=== PATIENT | female | born 1990 | race Caucasian/White ===

== ENCOUNTER → 2020-09-08 08:36 | Outpatient (CLI) | payer OTHER, SELFPAY ==
[2020-09-08 09:07] LABS: Add Manual Diff / Slide Review NO; Basophils Absolute Auto 0 /uL (0-100); Basophils Percent Auto 0.3 % (0-2); Eosinophils Absolute Auto 0 /uL (0-450); Eosinophils Percent Auto 0.2 % (2-4); Hematocrit 38.2 % (36-46); Hemoglobin 13.1 g/dL (12.0-16.0); Lymphocytes Absolute Auto 1800 /uL (1100-4500); Lymphocytes Percent Auto 20.4 % (25-40); Mean Corpuscular HGB Conc 34.1 % (30-36); Mean Corpuscular Hemoglobin 30.4 PG (26-34); Mean Corpuscular Volume 89.2 fL (80-100); Monocytes Absolute Auto 500 /uL (0-900); Neutrophils Absolute Auto 6700 /uL (1500-7000); Neutrophils Percent Auto 74.1 % (50-75); Platelet Count 295 X10^3/uL (150-400); Red Blood Cell Count 4.29 X10^6/uL (4.0-5.2); Red Cell Distribution Width 13.4 % (11.6-14.8)
[2020-09-08 10:26] LABS: Alanine Aminotransferase 16 IU/L (<35); Albumin 4.2 g/dL (3.5-5.0); Albumin Globulin Ratio 1.3 (1.0-2.8); Alkaline Phosphatase 60 U/L (38-126); Aspartate Aminotransferase 22 IU/L (14-36); BUN Creatinine Ratio 14.8 (6-22); Bilirubin Total 0.2 mg/dL (0.2-1.3); Blood Urea Nitrogen 9 mg/dL (7-17); Calcium 9.6 mg/dL (8.4-10.2); Carbon Dioxide 22 mmol/L (22-32); Chloride 104 mmol/L (98-107); Cholesterol 146 mg/dL (140-199); Estimated Glomerular Filt Rate > 60.0 mL/min (>60); Globulin 3.2 g/dL (1.7-4.1); Glucose 93 mg/dL (70-100); HDL Cholesterol 56 mg/dL (40-60); HEMOLYSIS < 15 (0-50); LDL Cholesterol Calculated 75 mg/dL (<100); Potassium 3.9 mmol/L (3.4-5.1); Sodium 134 mmol/L (137-145); Total Protein 7.4 g/dL (6.3-8.2); Triglycerides 77 mg/dL (35-150)
[2020-09-08 10:38] LABS: Total Iron Binding Capacity 396 ug/dL (265-497)
[2020-09-08 10:49] LABS: Free T4, Direct Thyroxine 1.06 ng/dL (0.78-2.19)
[2020-09-08 11:03] LABS: Thyroid Stimulating Hormone 1.31 uIU/mL (0.47-4.68)
[2020-09-08 11:07] LABS: Ferritin 11 ng/mL (6-137)
== END ==
PROVIDERS: PCP Registered Nurse; Referring Provider Registered Nurse; Visit Provider Registered Nurse
DX: D50.9 Iron deficiency anemia, unspecified (principal); Z82.49 Family history of ischemic heart disease and other diseases of the circulatory system; F41.8 Other specified anxiety disorders
CPT/HCPCS: 36415; 80053; 80061; 82728; 83550; 84439; 84443; 85025

== ENCOUNTER → 2022-01-05 14:59 | Outpatient (CLI) | payer OTHER, SELFPAY ==
[2022-01-05 15:44] LABS: Add Manual Diff / Slide Review NO; Basophils Absolute Auto 0 /uL (0-100); Basophils Percent Auto 0.5 % (0-2); Eosinophils Absolute Auto 0 /uL (0-450); Eosinophils Percent Auto 0.7 % (2-4); Hematocrit 39.7 % (36-46); Hemoglobin 13.4 g/dL (12.0-16.0); Lymphocytes Absolute Auto 2100 /uL (1100-4500); Mean Corpuscular HGB Conc 33.6 % (30-36); Mean Corpuscular Hemoglobin 29.9 PG (26-34); Mean Corpuscular Volume 88.8 fL (80-100); Monocytes Absolute Auto 300 /uL (0-900); Monocytes Percent Auto 4.8 % (3-14); Neutrophils Absolute Auto 4600 /uL (1500-7000); Platelet Count 311 X10^3/uL (150-400); Red Blood Cell Count 4.47 X10^6/uL (4.0-5.2); Red Cell Distribution Width 13.6 % (11.6-14.8); White Blood Cell Count 7.1 X10^3/uL (4.5-11.0)
[2022-01-05 16:06] LABS: Alanine Aminotransferase 17 IU/L (<35); Albumin 4.8 g/dL (3.5-5.0); Albumin Globulin Ratio 1.2 (1.0-2.8); Alkaline Phosphatase 112 U/L (38-126); Aspartate Aminotransferase 29 IU/L (14-36); BUN Creatinine Ratio 20.7 (6-22); Bilirubin Total 0.3 mg/dL (0.2-1.3); Blood Urea Nitrogen 17 mg/dL (7-17); C-Reactive Protein Quant 1.2 mg/dL (<1.0); Calcium 9.3 mg/dL (8.4-10.2); Carbon Dioxide 25 mmol/L (22-32); Chloride 104 mmol/L (98-107); Estimated Glomerular Filt Rate > 60 mL/min (>60); Globulin 3.9 g/dL (1.7-4.1); Glucose 91 mg/dL (70-100); HEMOLYSIS < 15 (0-50); Potassium 3.9 mmol/L (3.4-5.1); Sodium 140 mmol/L (137-145); Total Protein 8.7 g/dL (6.3-8.2); Uric Acid 4.6 mg/dL (2.5-6.2)
[2022-01-05 16:10] LABS: Rheumatoid Factor < 8.6 IU/mL (<12.0)
[2022-01-05 16:26] LABS: Erythrocyte Sedimentation Rate 15 MM/HR (0-20)
[2022-01-05 17:18] LABS: Vitamin D 25 Hydroxy (D3) 44.7 ng/mL (30.0-100.0)
[2022-01-06 16:23] LABS: Deamidated Gliadin Ab IgA 4 units (0-19); Deamidated Gliadin Ab IgG 5 units (0-19); Immunoglobulin A,Qn 227 mg/dL (87-352); t-Transglutaminase IgA <2 U/mL (0-3)
[2022-01-07 13:47] LABS: ANA Screen, IFA Negative (.)
[2022-01-08 22:04] LABS: CCP Antibodies IgG/IgA 6 units (0-19)
== END ==
PROVIDERS: PCP Registered Nurse Diabetes Educator; Referring Provider Registered Nurse Diabetes Educator; Visit Provider Registered Nurse Diabetes Educator
DX: K58.9 Irritable bowel syndrome, unspecified (principal); M25.50 Pain in unspecified joint; R53.83 Other fatigue
CPT/HCPCS: 36415; 80053; 82306; 82784; 83516; 84443; 84550; 85025; 85651; 86038; 86140; 86200; 86430

== ENCOUNTER 2023-04-27 10:53 | Day surgery (SDC) | payer OTHER, SELFPAY ==
[2023-04-21 12:32] VITALS: BMI 28.8
[2023-04-27] VITALS (7 sets, daily range): BP systolic 122–145; BP diastolic 56–84; PULSE 83–113; RESP 12–16; TEMP 36.6–36.8; O2SAT 95–99; BMI 28.8
[2023-04-27] MEDS: LACTATED RINGERS 1,000 ML 42 ML IV (11:41)
--- NOTE | 2023-04-27 13:00 | PM.HP.1 ---
History of Present Illness History of Present Illness Date Patient Seen: 04/27/23 Time Patient Seen: 13:00 Chief complaint: [facility] – [place] Narrative: Patient here for MPFL reconstruction, seen in the preoperative area. She has had some increased pain along lateral side of her knee since I last saw her on 03/28. She has not had any further dislocations but has been very careful not to pivot. Denies any recent nausea, vomiting, diarrhea, fevers, chills or any other constitutional symptoms. No other complaints at this time. [facility] Medical History (Updated 03/03/23 @ 09:17 by Shun Scales DO) Patellar dislocation Irritable bowel syndrome with predominant constipation Migraine with aura, not intractable, without status migrainosus Fibromyalgia Hypermobile Ford-Danlos syndrome depression Surgical History (Updated 04/21/23 @ 12:36 by Megan Pan RN) Hx of nasal septoplasty (2019) Social History household members: spouse and children Smoking Status: Never smoker alcohol intake: current substance use type: does not use Meds Home Medications and Allergies Home Medications Medication Instructions Recorded Confirmed Type duloxetine 60 mg capsule,delayed 60 mg PO DAILY #90 caps 01/24/23 04/27/23 Rx release linaclotide 145 mcg capsule 145 mcg PO DAILY #30 caps 04/15/23 04/27/23 Rx (Linzess) Allergies Allergy/AdvReac Type Severity Reaction Status Date / Time No Known Drug Allergies Allergy Verified 04/27/23 12:09 Review of Systems Review of Systems ROS: Yes All systems reviewed with the patient and are negative except as otherwise documented Exam Vital Signs (past 8 hours): - 04/27/23 11:30 Temperature 97.9 F Pulse Rate 86 Respiratory Rate 16 Blood Pressure 127/78 Pulse Oximetry 99 Oxygen Delivery Method Room Air Oxygen Delivery Method Room Air Narrative Exam Narrative: HEENT: Head atraumatic eyes anicteric moist mucous membranes Cardiovascular: Palpable peripheral pulses extremities are warm and well perfused Respiratory: Breathing comfortably on room air Psychiatric: Appropriate mood and affect Neuro: No acute deficits Musculoskeletal: Exam of the right lower extremity demonstrates 100% translation of the patella laterally. Full range of motion. Stable knee to Klaus's. Sensation intact to light touch throughout. 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 Risks and benefits of surgery were discussed again including the risk of infection, damage to internal structures, bleeding, nerve injury, instability, need for revision surgery, blood clots, anesthesia and . No guarantees were made regarding outcomes. Patient expressed understanding and accepted these risks and wished to go forward with surgery and consent was signed. Her right lower extremity was marked with my initials.
[2023-04-27] MEDS: CEFAZOLIN 2 GM/100 ML PREMIX 100 ML IV (14:21)
[2023-04-27] MEDS: TRANEXAMIC ACID 1,000 MG VIAL 1000 MG INJ (14:22)
--- NOTE | 2023-04-27 14:25 | SUR.OPER ---
Supine on padded OR bed, head on pillow, arms secured on padded arm boards at <90 degrees abduction, legs uncrossed, safety belt at thigh, tape over blanket over non op leg. operative leg draped free. right thigh against lateral post
[2023-04-27] MEDS: BUPIVACAINE 0.25% (PF) 30 ML, EPINEPHrine 0.15 MG INJ (14:52)
--- NOTE | 2023-04-27 15:26 | PM.OP.1 ---
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 The risks and benefits and alternatives of surgery were discussed. Risks including bleeding, infection, damage to neurovascular structures, blood clots including pulmonary embolism, worsening of pain, stiffness, swelling, failure of surgery and need for future surgery. No guarantees were made regarding outcomes Surgeon: Bobby Pineda Infantry Officer: Alisson Leach Click Yes if Unassisted: No Anesthesia Type: General Operative Notes Findings: Findings: Examination under anesthesia: Full range of motion from 0-160 degrees, stable to varus and valgus as well as Klaus's and posterior drawer. 100% translation of the patella. No J-sign. Patellofemoral joint: Healthy intact cartilage, patella is lateralized at rest and continues to slide lateral at 30? and 60? of flexion Medial and lateral gutters: No loose bodies noted Medial compartment: Intact medial meniscus, medial tibial plateau, medial femoral condyle Intercondylar notch: Cruciate ligaments intact Lateral compartment: Lateral meniscus, lateral femoral condyle and lateral tibial plateau are intact and appear healthy Closure Type: primary Specimen(s): none sent Prosthetic devices, grafts, tissues, transplants, or devices: Implants: Semi tendinosis allograft, 4.75 knotless SwiveLock x1, 1.8 mm knotless FiberTak Estimated Blood Loss (mL): 15 Tourniquet time (min): 60 Procedure in detail: Description: Patient was seen in the preoperative holding unit. We again went over the risks and benefits of surgery and I marked my initials on the right lower extremity. The patient was then brought to the operating room, placed supine on the operating table and underwent LMA anesthesia. Exam under anesthesia revealed absent check rein sign. Translation was around 100%. A well-padded tourniquet was placed on the proximal thigh. The extremity was then prepped and draped in the standard sterile fashion. 2 g of Ancef were given intravenously prior to the start of the procedure. The semi tendinosis allograft was identified and taken to the back table and whipstitched on either end. Simultaneously, arthroscopy was then performed. An anterior medial and an anterior lateral portal were established. Upon entering the patellofemoral joint there was no significant cartilage pathology. The patella was not centered over the trochlear groove and was noted to be lateralized. Exam of the medial and lateral compartments demonstrated intact meniscus and intact cartilage. Aggressive synovectomy was performed of multiple compartments using a 4 mm shaver including a debridement of the medial plica and anterior fat pad and multiple compartments including the medial and lateral compartment to allow full uninhibited range of motion throughout rehabilitation. ACL and PCL were intact. The arthroscopy equipment was removed and we began with a 3 cm incision centered over the proximal patella and distal quadriceps tendon. Two parallel incisions were made within the quadriceps tendon and a passing suture was placed between the incisions. Using the same skin incision, some of the periosteum on the medial border of the proximal 1/3 of the patella was elevated. We then made a separate incision centered over the medial epicondyle. Dissection was taken down to between the medial epicondyle and adductor tubercle. The saddle area between them was palpated. A small incision was made in the VMO fascia near the insertion and a tonsil clamp was passed between layers 2 and layer 3 to the saddle area on the femur. A silver punch for the Arthrex SwiveLock was then malleted part way down and the passing suture was looped around and used to test asymmetry. When we were satisfied with our cystometry we completed the punch to the 2nd line. The SwiveLock was then placed at the junction of the 1 3-2/3rd section of the graft and the graft was placed in a onlay fashion onto femur. The long end of the limb was then passed to the quadriceps incisions and the short and was passed of the patella. Arthroscopy equipment was reinserted to ensure there was no intra-articular passing of the graft. Then, careful not to over tension the graft, we sutured the graft into the quadriceps tendon. This set the tension, the 2nd limb, the shorter limb was then placed into a knotless FiberTak in the patella and this was used to suture the short limb of the allograft. Arthroscopy equipment was again reinserted and the knee was taken through full range of motion is noted to have good check rein and was equal in medial and lateral glide about 5-7 mm in each direction. The wounds were irrigated and the retinaculum around the patella was closed with Vicryl and the skin was closed in 2 layers using 3-0 PDS and Monocryl. Steri-Strips were placed along with Xeroform, 4x4s and Bret bandage. Attending/assisting participation: This operation could not have been safely performed (without compromising the technical results or length of the procedure) without the assistance of a skilled surgical consultant. The surgical consultant was medically necessary for proper positioning, retraction and manipulation of the instruments, proper exposure, graft prep. Complications: none Post-operative Condition: stable Disposition: PACU Plan for aftercare: Postop instructions: Partial weight-bearing until full quadriceps strength comes back. Please remain in brace for 4 weeks completely unlocked. (Keep it locked when ambulating until quad strength comes back) work on flexion specifically in the 1st 2 weeks. Okay for dressings to come off on postoperative day 3, washing completely dry and replace dressings for 2 more days.
[2023-04-27] MEDS: OXYCODONE IR 5 MG TABLET PO (15:57)
[2023-04-27] MEDS: HYDROMORPHONE 1 MG INJ IV ×2 (16:01→16:10)
[2023-04-27] MEDS: ONDANSETRON 4 MG/2 ML INJ IV (16:48)
== END 2023-04-27 17:16 | disposition home or self-care (01) ==
PROVIDERS: PCP Registered Nurse Diabetes Educator; Referring Provider Orthopaedic Surgery; Visit Provider Orthopaedic Surgery
PROC: (CPT 29870; principal; 2023-04-27 12:45)
DX: M22.01 Recurrent dislocation of patella, right knee (principal); S83.411D Sprain of medial collateral ligament of right knee, subsequent encounter
CPT/HCPCS: 27427; 29877; J0171; J0690; J1100; J1170; J1885; J2250; J2405; J2704; J3010

== ENCOUNTER → 2024-05-14 10:32 | Outpatient (CLI) | payer OTHER, SELFPAY ==
--- NOTE | 2024-05-14 10:32 | DI.US.S_ITS ---
PROCEDURE: US PELVIC COMPLETE INDICATIONS: Heavy menses with clots and pain w/menses TECHNIQUE: Real-time scanning was performed of the pelvic organs, with image documentation. Additional endovaginal scanning was necessary due to incomplete visualization of the adnexal and endometrial structures by transabdominal scanning. COMPARISON: None. FINDINGS: Uterus: Uterus is anteverted and normal in size at 8.7 cm. The myometrium is homogeneous. The endometrium measures 1.4 cm combined thickness. Ovaries: The right ovary measures 2.6 x 1.8 x 2.4 cm, with a calculated ovarian volume of 5.9 cc. The left ovary measures 3.0 x 1.9 x 2.5 cm, with a calculated ovarian volume of 7.5 cc. Within the left ovary is seen but appears to be a ovarian follicular cyst measuring up to 2 cm with small adjacent fluid. The ovaries otherwise have a normal sonographic appearance. Less than 12 follicles can be seen in each ovary. Other: Small volume pelvic free fluid. IMPRESSION: 1. Left ovarian follicular cyst measuring up to 2 cm. 2. Secretory phase endometrium. 3. Small volume pelvic free fluid. We strive to produce accurate, complete, and clear reports of imaging services. To assist us in improving patient care, this report was composed using standard report templates and voice recognition software. Therefore, it may contain abnormal punctuation, insertions and/or omissions. Occasional wrong-word or sound-alike substitutions may occur. Though we review the report and make efforts to correct it, we do recommend that the report be read carefully in proper context to recognize any text inaccuracies. Dictated by: Matthieu Melton M.D. on 05/14/2024 at 16:03 Approved by: Matthieu Melton M.D. on 05/14/2024 at 16:12
== END ==
PROVIDERS: PCP Registered Nurse Diabetes Educator; Referring Provider Physician Assistant; Visit Provider Physician Assistant
DX: N83.02 Follicular cyst of left ovary (principal); N92.0 Excessive and frequent menstruation with regular cycle; N94.6 Dysmenorrhea, unspecified
CPT/HCPCS: 76830; 76856

== ENCOUNTER → 2024-06-07 15:15 | Outpatient (CLI) | payer OTHER, SELFPAY ==
[2024-06-07 16:16] LABS: Hematocrit 39.4 % (36-46); Hemoglobin 13.2 g/dL (12.0-16.0); Mean Corpuscular HGB Conc 33.4 % (30-36); Mean Corpuscular Hemoglobin 29.5 PG (26-34); Mean Corpuscular Volume 88.2 fL (80-100); Platelet Count 411 X10^3/uL (150-400); Red Blood Cell Count 4.47 X10^6/uL (4.0-5.2); Red Cell Distribution Width 13.2 % (11.6-14.8)
[2024-06-07 16:33] LABS: Alanine Aminotransferase 24 IU/L (<35); Albumin 4.7 g/dL (3.5-5.0); Albumin Globulin Ratio 1.5 (1.0-2.8); Alkaline Phosphatase 76 U/L (38-126); Aspartate Aminotransferase 30 IU/L (14-36); Bilirubin Total 0.3 mg/dL (0.2-1.3); Blood Urea Nitrogen 16 mg/dL (7-17); Calcium 10.1 mg/dL (8.4-10.2); Carbon Dioxide 26 mmol/L (22-32); Chloride 104 mmol/L (98-107); Estimated Glomerular Filt Rate > 60 mL/min (>60); Globulin 3.2 g/dL (1.7-4.1); Glucose 72 mg/dL (70-100); HEMOLYSIS < 15 (0-50); Potassium 4.3 mmol/L (3.4-5.1); Sodium 139 mmol/L (137-145); Total Protein 7.9 g/dL (6.3-8.2)
[2024-06-07 17:03] LABS: TSH w/ Reflex to FT4 1.12 uIU/mL (0.47-4.68)
[2024-06-07 17:12] LABS: Vitamin D 25 Hydroxy (D3) 62.7 ng/mL (30.0-100.0)
== END ==
LOC: LAB 15:15
PROVIDERS: PCP Registered Nurse Diabetes Educator; Referring Provider Registered Nurse Diabetes Educator; Visit Provider Registered Nurse Diabetes Educator
DX: G90.A Postural orthostatic tachycardia syndrome [POTS] (principal); D50.9 Iron deficiency anemia, unspecified; R53.83 Other fatigue
CPT/HCPCS: 36415; 80053; 82306; 84443; 85027

== ENCOUNTER → 2024-06-12 08:58 | Outpatient (CLI) | payer OTHER, SELFPAY ==
[2024-06-12 10:43] LABS: HEMOLYSIS < 15 (0-50); Iron 43 ug/dL (37-170)
[2024-06-12 10:55] LABS: Percent Iron Saturation 12 % (15-50); Total Iron Binding Capacity 360 ug/dL (265-497); Transferrin 347 mg/dL (206-381)
[2024-06-12 11:15] LABS: Cortisol AM (Before 10AM) 11.4 ug/dL (4.46-22.7)
[2024-06-12 11:19] LABS: Ferritin 8 ng/mL (6-137)
== END ==
PROVIDERS: PCP Registered Nurse Diabetes Educator; Referring Provider Registered Nurse Diabetes Educator; Visit Provider Registered Nurse Diabetes Educator
DX: R53.83 Other fatigue (principal); R23.2 Flushing; E61.1 Iron deficiency; R42 Dizziness and giddiness
CPT/HCPCS: 36415; 82533; 82728; 83520; 83540; 83550

== ENCOUNTER → 2024-11-12 14:22 | Outpatient (CLI) | payer OTHER, SELFPAY ==
--- NOTE | 2024-11-12 14:26 | DI.RAD.S_ITS ---
PROCEDURE: XR KNEE RT 3V INDICATIONS: Persistent anterior medial joint line pain TECHNIQUE: 3 views of the knee were acquired. COMPARISON: None. FINDINGS: Bones: There are no osseous abnormalities. Joints: The tibialfemoral and patellofemoral joints are normal without alignment. Small effusion noted. Soft tissues: Normal IMPRESSION: Small effusion Dictated by: Ajay Shah M.D. on 11/13/2024 at 11:09 Approved by: Ajay Shah M.D. on 11/13/2024 at 11:10
[2024-11-12 16:22] LABS: HEMOLYSIS < 15 (0-50); Iron 86 ug/dL (37-170)
[2024-11-12 16:33] LABS: Percent Iron Saturation 22 % (15-50); Total Iron Binding Capacity 396 ug/dL (265-497); Transferrin 329 mg/dL (206-381)
[2024-11-12 18:09] LABS: Ferritin 10 ng/mL (6-137)
[2024-11-12 18:12] LABS: Hematocrit 40.0 % (36-46); Hemoglobin 13.4 g/dL (12.0-16.0); Mean Corpuscular HGB Conc 33.6 % (30-36); Mean Corpuscular Hemoglobin 30.2 PG (26-34); Mean Corpuscular Volume 90.0 fL (80-100); Platelet Count 346 X10^3/uL (150-400)
== END ==
PROVIDERS: PCP Registered Nurse Diabetes Educator; Referring Provider Family Medicine; Visit Provider Family Medicine
DX: M25.561 Pain in right knee (principal); D50.9 Iron deficiency anemia, unspecified; M25.461 Effusion, right knee
CPT/HCPCS: 36415; 73562; 82728; 83540; 83550; 85027

== ENCOUNTER → 2025-01-21 11:27 | Outpatient (CLI) | payer OTHER, SELFPAY ==
[2025-01-21 13:56] LABS: Vitamin B12 912 pg/mL (239-931)
[2025-01-23 20:08] LABS: ANA Screen, IFA Negative (.)
[2025-01-28 15:36] LABS: HLA B27 Negative (.)
== END ==
PROVIDERS: PCP Registered Nurse Diabetes Educator; Referring Provider Registered Nurse Diabetes Educator; Visit Provider Registered Nurse Diabetes Educator
DX: M25.50 Pain in unspecified joint (principal); R53.83 Other fatigue
CPT/HCPCS: 36415; 81374; 82607; 85651; 86038; 86140; 86200; 86430

== ENCOUNTER → 2025-03-04 11:11 | Outpatient (CLI) | payer OTHER, SELFPAY ==
--- NOTE | 2025-03-04 11:13 | DI.RAD.S_ITS ---
PROCEDURE: XR RIBS BI MIN 4V W CXR1V INDICATIONS: eval R lateral rib pain and central chest wall pain TECHNIQUE: 4 views of the ribs were acquired, along with a single view chest. COMPARISON: None. FINDINGS: Surgical changes and devices: None. Bones and chest wall: No fractures or dislocations. No suspicious bony lesions. Overlying soft tissues appear unremarkable. Lungs and pleura: No pleural effusions or pneumothorax. Lungs appear clear. Mediastinum: Mediastinal contours appear normal. Heart size is normal. IMPRESSION: No displaced rib fracture or pneumothorax. Dictated by: Wesley Lugo M.D. on 03/05/2025 at 15:40 Approved by: Wesley Lugo M.D. on 03/05/2025 at 15:42
== END ==
LOC: RAD 11:13
PROVIDERS: PCP Registered Nurse Diabetes Educator; Referring Provider Registered Nurse Diabetes Educator; Visit Provider Registered Nurse Diabetes Educator
DX: R07.81 Pleurodynia (principal)
CPT/HCPCS: 71111

== ENCOUNTER → 2025-03-27 13:37 | Outpatient (CLI) | payer OTHER, SELFPAY ==
--- NOTE | 2025-03-27 13:39 | DI.ECHO.S_ITS ---
[facility] : : [id number] : : [place] : : [id number] : : Phone: [phone] Echocardiogram Report + + :Name: REN CAMARENA Study Date: 03/27/2025 Height: 64 in : :[facility] ReadingLocation: Weight: 153 lb : : Gender: Female BSA: 1.7 m2 : :: 1990 Age: 34 yrs BP: 127/88 mmHg: :Reason For Study: DYSPNEA : :Ordering Physician: DELL, : :CHAPIN Performed By: Chad Romo : :Referring: CHAPIN HURLEY : + + Interpretation Summary 1) Normal left ventricular thickness, size, wall motion, and systolic function (EF 55-60%). 2) Normal right ventricular size and function. 3) No significant valvular abnormalities. 4) No prior Echo available for comparison. Procedure: A two-dimensional transthoracic echocardiogram with color flow and Doppler was performed. The study quality was technically good. Comparison is made with the echocardiogram of 12/23/2022. The patient was in normal sinus rhythm during the exam. Left Ventricle: The left ventricle is normal in size. There is normal left ventricular wall thickness. There is no ventricular septal defect visualized. The ejection fraction is estimated to be 55-60%. There are no focal wall motion abnormalities. Diastolic parameters suggest probable normal left ventricular diastolic function and normal filling pressures. Right Ventricle: The right ventricle is normal in size and function. Atria: The left atrial size is normal. Right atrial size is normal. The interatrial septum is not well visualized. Mitral Valve: The mitral valve leaflets appear normal. There is no evidence of stenosis, fluttering, or prolapse. There is no mitral regurgitation noted. Aortic Valve: The aortic valve is trileaflet. The aortic valve opens well. There is no aortic valve stenosis. No aortic regurgitation is present. Tricuspid Valve: The tricuspid valve leaflets are thin and pliable. No tricuspid regurgitation. Pulmonary artery pressures cannot be estimated because of the lack of a measurable TR jet velocity. Pulmonic Valve: The pulmonic valve is not well seen, but is grossly normal. There is no pulmonic valvular regurgitation. Great Vessels: The aortic root is normal size. The dimensions of the ascending aorta are normal. The pulmonary artery is normal size. The inferior vena cava was not well visualized. Pericardium/ Pleura There is no pericardial effusion. There is no pleural effusion. MMode/2D Measurements & Calculations LVIDd: 4.4 cm LVOT diam: 2.0 cm LVIDs: 2.9 cm Ao root diam: 3.0 cm FS: 35.2 % asc Aorta Diam: 2.8 cm EPSS: 0.46 cm IVSd: 0.88 cm LVPWd: 0.79 cm LV love. diameter/BSA (cm/m^2): 2.5 LV sys. diameter/BSA (cm/m^2): 1.6 LA A2 area: 16.4 cm2 RA long axis: 3.8 cm LA A4 area: 16.3 cm2 RA area: 8.9 cm2 LA length (vol): 5.2 cm RA vol: 17.9 ml LA vol: 43.3 ml RA : 10.2 ml/m2 LA vol index: 24.8 ml/m2 RVD1 (basal): 2.9 cm RVD2 (mid): 2.3 cm TAPSE: 2.1 cm Doppler Measurements & Calculations Ao V2 max: 128.0 cm/sec LVOT Max Devan: 108.9 cm/sec Ao V2 mean: 90.0 cm/sec LV V1 max P.7 mmHg Ao max P.5 mmHg LV V1 VTI: 22.0 cm Ao mean P.6 mmHg ERIKA(I,D): 2.8 cm2 Ao V2 VTI: 25.7 cm ERIKA(V,D): 2.7 cm2 sev ratio: 0.86 ERIKA indexed to BSA (cm^2/m^2): 1.6 MV E max devan: 81.5 cm/sec PA V2 max: 97.0 cm/sec MV A max devan: 61.1 cm/sec PA V2 mean: 73.8 cm/sec MV E/A: 1.3 PA mean P.3 mmHg Med Peak E' Devan: 12.2 cm/sec PA pr(Accel): 37.9 mmHg E/E' med: 6.7 Lat Peak E' Devan: 12.2 cm/sec E/E' lat: 6.7 E/e' average: 6.7 MV dec time: 0.21 sec SV(LVOT): 70.8 ml Reading Physician:01:49 PM
== END ==
LOC: ECHO 13:37
PROVIDERS: PCP Registered Nurse Diabetes Educator; Referring Provider Registered Nurse Diabetes Educator; Visit Provider Internal Medicine Cardiovascular Disease
DX: R06.09 Other forms of dyspnea (principal)
CPT/HCPCS: 93306